=== PATIENT | female | born 2000 | race Caucasian/White ===

== ENCOUNTER 2020-10-10 05:08 | Emergency (ER) | payer OTHER ==
[~2020-10-10] VITALS: Ht 167.7 cm; Wt 118.2 kg
[2020-10-10 05:24] VITALS: BP 143/81
[2020-10-10] MEDS ORDERED: methylPREDNISolone 125 MG (Solu-MEDROL) VIAL IM STA (05:33)
[2020-10-10] MEDS ORDERED: FAMOTIDINE 20 MG (PEPCID) TABLET PO STA (05:33)
--- NOTE | 2020-10-10 05:39 | ED General ---
General Chief Complaint: Allergic Reaction Stated Complaint: ALLERGIC RXN Nursing Triage Note: Pt ambulates to room #5 with c/o allergic reaction. Pt reports on the evening of 10/09/20 her bottom lip began to swell. Pt reports she awoke this morning and noted her top lip to be swollen. Pt denies SOA, tongue, or throat discomfort. A&OX4. Nursing Sepsis Screen: No Definite Risk Source of Information: Patient History of Present Illness Date Seen by Provider: Oct 10, 2020 Time Seen by Provider: 05:25 Initial Comments PT ARRIVES VIA POV FROM HOME--DROVE SELF HERE C/O SWELLING TO LIPS SINCE 1729 YESTERDAY ( THANKSGIVING ) STATES IT STARTED WITH HER LOWER LIP TOOK 2 BENADRYL AROUND 1929, IS NOT SURE IF IT HELPED OR NOT WOKE UP THIS MORNING AND NOW HER UPPER LIP IS SWOLLEN NO SWELLING OF TONGUE OR THROAT NO DIFFICULTY BREATHING, SWALLOWING OR TALKING NO RASH OR ITCHING ANYWHERE NO HISTORY OF SIMILAR NO NEW MEDICATIONS TAKES CLARITIN FOR ALLERGIES, BUT HAS NOT TAKEN ANY THIS MORNING LMP 3 YEARS AGO. HAS NEXPLANON IN PLACE SINCE THEN. PCP: OUSMANE, NEDA TATE Allergies and Home Medications Allergies Coded Allergies: No Known Drug Allergies (Unverified , 10/10/20) Patient Home Medication List Home Medication List Reviewed: Yes Review of Systems Review of Systems Constitutional: no symptoms reported EENTM: see HPI; No mouth pain, No nose congestion, No throat pain, No throat swelling Respiratory: no symptoms reported; No cough, No short of breath, No wheezing Cardiovascular: no symptoms reported; No edema Gastrointestinal: no symptoms reported Genitourinary: no symptoms reported : No Musculoskeletal: no symptoms reported Skin: no symptoms reported; No pruritus, No rash Psychiatric/Neurological: No Symptoms Reported Hematologic/Lymphatic: No Symptoms Reported Immunological/Allergic: no symptoms reported Past Nzdqdbw-Dsnyzp-Evvjud Hx Past Med/Social Hx: Reviewed and Corrections made Patient Social History Recent Foreign Travel: No Contact w/Someone Who Travel: No Recent Infectious Disease Expo: No Seasonal Allergies Seasonal Allergies: Yes Past Medical History : No (NEXPLANON IN PLACE SINCE 2016) Physical Exam Vital Signs Vital Signs - First Documented 10/10/20 05:24 Temp 36.2 Pulse 99 Resp 18 B/P (MAP) 143/81 (101) Pulse Ox 98 O2 Delivery Room Air Capillary Refill : Less Than 3 Seconds Height, Weight, BMI Height: '" Weight: lbs. oz. kg; 42.00 BMI Method: General Appearance: No Apparent Distress, WD/WN HEENT: PERRL/EOMI, Pharynx Normal, Moist Mucous Membranes, Other (HAS MILD TO MODERATE SWELLING TO LIPS--UPPER GREATER THAN LOWER. NO SWELLING TO TONGUE OR POSTERIOR PHARYNX. VOICE IS NORMAL. ) Respiratory: Normal Breath Sounds, No Accessory Muscle Use, No Respiratory Distress; No Stridor, No Wheezing Cardiovascular: Regular Rate, Rhythm, No Edema Extremity: Normal Inspection Neurologic/Psychiatric: Alert, Oriented x3, No Motor/Sensory Deficits, Normal Mood/Affect, claims account manager II-XII Norm as Tested Skin: Normal Color, Warm/Dry; No Rash Progress/Results/Core Measures Suspected Sepsis Recent Fever Within 48 Hours: No Infection Criteria Present: None New/Unexplained Altered Menta: No Sepsis Screen: No Definite Risk SIRS Temperature: Pulse: 99 Respiratory Rate: 18 Blood Pressure 143 /81 Mean: 101 Results/Orders My Orders Orders - SHAWN GRUBER DO Methylprednisolone Sod Succ (Solu-Medrol (10/10/20 05:33) Famotidine Tablet (Pepcid Tablet) (10/10/20 05:33) Vital Signs/I&O 10/10/20 05:24 Temp 36.2 Pulse 99 Resp 18 B/P (MAP) 143/81 (101) Pulse Ox 98 O2 Delivery Room Air Capillary Refill : Less Than 3 Seconds Blood Pressure Mean: 101 Progress Note : Progress Note GIVEN SOLU-MEDROL IM, AND PEPCID PO PT ADVISED TO TAKE HER CLARITIN SOON SHE GETS HOME, OR MAY TAKE 50 MG BENADRYL SHE DROVE HERSELF HERE. Departure Impression Primary Impression: ALLERGIC REACTION UNKNOWN CAUSE Disposition: HOME, SELF-CARE Condition: Stable Departure-Patient Inst. Referrals: YANIRA TATE (PCP/Family) Primary Care Physician Patient Instructions: Food Allergy Add. Discharge Instructions: LOTS OF CLEAR LIQUIDS TAKE YOUR CLARITIN WHEN YOU GET HOME, OR YOU MAY TAKE BENADRYL 50 MG EVERY 4 HOURS NEEDED FOR SWELLING COOL COMPRESSES TO LIPS AVOID ANY NEW FOODS, DRINKS, PRODUCTS, ETC. RETURN TO ER IF YOU DEVELOP DIFFICULTY BREATHING OR SWALLOWING. All discharge instructions reviewed with patient and/or family. Voiced und erstanding. Scripts Prednisone (Prednisone) 20 Mg Tab 40 MG PO DAILY, #6 TAB 0 Refills Prov: SHAWN GRUBER DO 10/10/20 Famotidine (Pepcid) 40 Mg Tablet 40 MG PO DAILY, #10 TAB Prov: SHAWN GRUBER DO 10/10/20 SHAWN GRUBER DO Oct 10, 2020 05:39
[2020-10-10] MEDS ORDERED: FAMO40TA72 PO (05:45)
[2020-10-10] MEDS ORDERED: PRD20T PO (05:45)
== END 2020-10-10 05:54 | disposition home or self-care (01) ==
LOC: EDUNIT# 05:08 → ER 05:10
DX: R22.9 Localized swelling, mass and lump, unspecified (principal); T45.0X5A Adverse effect of antiallergic and antiemetic drugs, initial encounter
CPT/HCPCS: 99284